=== PATIENT | male | born 1985 | race Caucasian/White ===

== ENCOUNTER 2020-06-26 16:37 | Emergency (ER) | payer BC, SELFPAY ==
[2020-06-26 16:38] VITALS: BP 146/105; PULSE 86; RESP 16; TEMP 36.2; O2SAT 99; BMI 40.6
--- NOTE | 2020-06-26 17:08 | ED.VISSUMM ---
- ER Visit Summary Date of Service: 06/26/20 Chief Complaint: Difficulty urinating and right back pain History of Present Illness: The patient is a 35 M no seen past medical history. Prior vasectomy. Patient states he has had some dysuria since yesterday morning. And difficulty urinating. Some pain in his right flank. Denies nausea, vomiting or diarrhea. No fever. States he has urgency but little urinary output. Denies any blood. No trauma. No prior history. Physical Examination: Young male no acute distress vital signs stable afebrile. H EENT exam unremarkable. Neck nontender no lymphadenopathy. Lungs clear to auscultation. Heart regular rhythm no murmur. Abdomen soft nontender nondistended. Normal bowel sounds no peritoneal signs. No suprapubic tenderness. External exam unremarkable. Bilateral descended testicles. No torsion. No mass. No obvious hernia. Circumcised. Extremities moves all 4. Neurovascular intact. No edema. Back no reproducible back or CVA tenderness. Neurologically awake alert with no focal motor deficits. Test Results: Chemistries normal normal creatinine gap. Urine to [address] flank without contrast shows a right UVJ 1 mm stone without hydro-. Read by the radiologist and reviewed by me. Bladder scan only 12 mL's no retention. Emergency Department Course and Treatment: With decreased urination and dysuria. Exam is unremarkable. Urinalysis, BMP and bladder scan will be obtained. He will be given IV Toradol for pain. Patient was also given IV Dilaudid for his pain. On repeat exam he is doing well. Treatment Plan: Plenty of fluids and rest. Strain urine for stone. Cunningham for pain. Motrin also. Follow-up with his doctor as needed. Disposition: Discharged Impression: Acute right UVJ 1 mm kidney stone. This note was generated with [employer] dictation software. It may contain incorrect words, spelling, and punctuation that were not noted in review of the chart prior to signing ED Disposition - Plan for ED Patient: Referrals: Praveen Gannon III, MD [Primary Care Provider] -
[2020-06-26 17:32] LABS: Mucous, Urine 0 SEEN /hpf (<or=2+); White Blood Cells 0 SEEN /hpf (0-5)
[2020-06-26] MEDS: Ondansetron 4 MG/2 ML Vial IV (17:33)
[2020-06-26] MEDS: Ketorolac 30 MG/ML Syringe IV (17:33)
[2020-06-26 17:36] LABS: Color, Urine Yellow (Yellow); Glucose, Dipstick Normal (Normal); Ketone-Dipstick Negative (Negative); Leukocyte Esterase-Dipstick Negative /ul (Negative); Nitrite-Dipstick Negative (Negative); Occult Blood-Urine 250 /ul (Negative); Protein-Dipstick Negative (Negative); Urine Bilirubin Dipstick Negative (Negative); Urine Clarity Clear (Clear); Urine Urobilinogen Normal (Normal)
[2020-06-26 17:42] LABS: Squamous Epithelial Cells - UA 5-10 SEEN /hpf (0-5)
[2020-06-26 17:43] LABS: Bacteria 1+ /hpf (None Seen); Red Blood Cells-Urine 10-25 SEEN /hpf (0-5)
[2020-06-26 17:46] LABS: Anion Gap 6 (5-15); BUN 13 mg/dL (7-18); BUN/Creat Ratio 12.3 RATIO (10-20); Chloride 107 mmol/L (98-107); Creatinine, Serum 1.06 mg/dL (0.70-1.30); EST Glomerular Filtration Rate 83 mL/min (>60); Est Glom Filt Rate - Afr Amer 101 mL/min (>60); Estimated Creatinine Clearance 114.04 ml/min; Glucose 88 mg/dL (74-106); Potassium 4.1 mmol/L (3.5-5.1); Sodium Level 142 mmol/L (136-145)
--- NOTE | 2020-06-26 18:02 | CT_ITS ---
STUDY: CT ABDOMEN AND PELVIS WITHOUT CONTRAST REASON FOR EXAM: Male, 35 years old. Right flank pain and dysuria testicular pain RADIATION DOSAGE (If Supplied By Facility): CTDIvol = ( 20.08 ) mGy, DLP = ( 1702.37 ) mGycm TECHNIQUE: Transaxial images were obtained from the dome of the diaphragm to the symphysis pubis without oral contrast, and without intravenous contrast. Sagittal and coronal images were reconstructed. Individualized dose optimization techniques were used for this CT. COMPARISON: None. FINDINGS: 1 mm stone is located at the right ureterovesical junction without upstream hydronephrosis. Left collecting system is clear. The liver is fatty infiltrated without focal lesions or biliary dilation. Spleen, adrenals and pancreas are intact. Bowel is normal. BMI is elevated with intra-abdominal lipomatosis. CT/Abdomen/Pelvis without Cont IMPRESSION: 1 mm right ureterovesical junction stone without hydronephrosis. Electronically Signed: Simón Rai, at 18:28 EDT Tel , Service support ,
--- NOTE | 2020-06-26 18:53 | DCINST.ED_ITS ---
ED Disposition - Plan for ED Patient: Disposition: Home or Assisted Living Instructions: ED Renal Stone w Colic Prescriptions: Hydrocodone/Acetaminophen [Rutland 7.5-325 Tablet] 1 ea PO 5X/DAY 3 Days #14 tab Prescription Printed Referrals: Praveen Gannon III, MD [Primary Care Provider] - 3-5 Days if not improving Additional Instructions: Fluids and rest. Rutland and Motrin for pain. You have a 1 mm right-sided kidney stone that should pass in the next 1 to 3 days. Strain your urine for the past stone. Follow-up with your doctor as needed.
[2020-06-26] MEDS: HYDROmorphone 1 MG/ML Syringe IV (18:54)
[2020-06-26 19:15] VITALS: BP 163/109; RESP 16
== END 2020-06-26 19:17 | disposition home or self-care (01) ==
PROVIDERS: Emergency Provider Emergency Medicine; PCP Family Medicine
DX: N20.2 Calculus of kidney with calculus of ureter (principal)
CPT/HCPCS: 74176; 80048; 81001; 96374; 96375; 99284; A4216; J2405

== ENCOUNTER → 2020-08-08 17:33 | Outpatient (CLI) | payer BC, SELFPAY | PROVIDERS: PCP Family Medicine; Referring Provider Physician Assistant Surgical; Visit Provider Physician Assistant Surgical | DX: U07.1 COVID-19 (principal) | CPT/HCPCS: 87635; C9803; U0003 ==

== ENCOUNTER → 2020-09-20 09:26 | Outpatient (CLI) | payer BC, SELFPAY ==
[2020-09-20 08:21] VITALS: BMI 39.1
[2020-09-20 12:20] LABS: Absolute Neutrophil Count 3.8 X10^3/uL (2.0-7.7); Basophil# 0.04 X10^3/uL; Basophil% 0.6 % (0-1); Eosinophil# 0.09 X10^3/uL; Eosinophils% 1.4 % (0-5); Hematocrit 51.1 % (40-54); Lymphocyte % 29.8 % (19-41); Mean Corp Hgb Conc 33.3 g/dL (32-36); Mean Corpuscular Hgb 31.7 pg (27.0-32.0); Mean Corpuscular Volume 95.2 fL (80-94); Mean Platelet Vol. 10.8 fl (6.2-12.0); Monocyte# 0.48 X10^3/uL; Monocyte% 7.5 % (0-10); NRBC Flagged by Analyzer 0 % (0-5); Neutrophil # 3.84 X10^3/uL (2.7-7.7); Neutrophil % 60.2 % (47-70); Platelet Count 340 K/mm3 (150-450); RBC Distribution Width CV 13.5 % (11.6-14.6); RBC Distribution Width SD 47.2 fl (35.1-43.9); Red Blood Count 5.37 M/mm3 (4.6-6.2); White Blood Count 6.4 K/mm3 (4.4-11.0)
[2020-09-20 12:42] LABS: ALB/GLOB Ratio 0.9 RATIO (0.9-2.4); AST(SGOT) 32 U/L (15-37); Alanine Aminotransfer ALT/SGPT 53 U/L (16-61); Albumin, Serum 4.1 g/dL (3.2-5.0); Alkaline Phosphatase 78 U/L (45-117); Anion Gap 5 (5-15); BUN 12 mg/dL (7-18); BUN/Creat Ratio 11.8 RATIO (10-20); Calcium,Total 9.2 mg/dL (8.5-10.1); Chloride 104 mmol/L (98-107); Cholesterol 199 mg/dL (200); Creatinine, Serum 1.02 mg/dL (0.70-1.30); EST Glomerular Filtration Rate 87 mL/min (>60); Est Glom Filt Rate - Afr Amer 105 mL/min (>60); Globulin 4.5 g/dL (2.2-4.2); Glucose 103 mg/dL (74-106); High Density Lipoprotein 35 mg/dL; Potassium 4.2 mmol/L (3.5-5.1); Protein, Total 8.6 g/dL (6.4-8.2); Sodium Level 137 mmol/L (136-145); Triglycerides 163 mg/dL; Very Low Density Lipoprotein 33 mg/dL (5-40)
== END ==
PROVIDERS: PCP Internal Medicine; Referring Provider Internal Medicine; Visit Provider Internal Medicine
DX: I10 Essential (primary) hypertension (principal)
CPT/HCPCS: 36415; 80053; 80061; 85025

== ENCOUNTER → 2020-09-20 11:06 | Outpatient (CLI) | payer BC, SELFPAY ==
[2020-09-20 08:21] VITALS: BMI 39.1
--- NOTE | 2020-09-20 11:09 | EKG12_ITS ---
Test Reason : Blood Pressure : / mmHG Vent. Rate : 080 BPM Atrial Rate : 080 BPM P-R Int : 160 ms QRS Dur : 094 ms QT Int : 370 ms P-R-T Axes : 018 010 021 degrees QTc Int : 426 ms Normal sinus rhythm Normal ECG Confirmed by ROGELIO PATEL, EDGARD ([id number]), editor managing newspaper CARLA DIXON ([id number]) on 09/21/2020 9:40:25 AM Referred By: Erica Donaldson Confirmed By:EDGARD MERCADO MD
== END ==
PROVIDERS: PCP Internal Medicine; Referring Provider Internal Medicine; Visit Provider Internal Medicine
DX: I10 Essential (primary) hypertension (principal)
CPT/HCPCS: 93005

== ENCOUNTER 2021-01-19 08:41 | Outpatient (RCR) | payer BC, SELFPAY ==
[2020-11-25 10:22] VITALS: BMI 38.7
== END 2021-03-14 23:59 ==
LOC: IMMUN 08:41
PROVIDERS: PCP Internal Medicine; Referring Provider Family Medicine; Visit Provider Family Medicine
DX: Z23 Encounter for immunization (principal)
CPT/HCPCS: 0001A; 0002A; 91300

== ENCOUNTER → 2021-08-16 09:57 | Outpatient (CLI) | payer BC, SELFPAY ==
[2021-08-16 12:17] LABS: Absolute Lymphocyte Count 1.28 X10^3/uL (0.83-4.51); Absolute Neutrophil Count 5.9 X10^3/uL (2.0-7.7); Basophil# 0.03 X10^3/uL; Basophil% 0.4 % (0-1); Eosinophil# 0.06 X10^3/uL; Eosinophils% 0.8 % (0-5); Hematocrit 46.9 % (40-54); Hemoglobin 16.1 g/dL (13.0-16.5); Lymphocyte # 1.28 X10^3/ul (0.83-4.51); Lymphocyte % 16.5 % (19-41); Mean Corp Hgb Conc 34.3 g/dL (32-36); Mean Corpuscular Volume 90.4 fL (80-94); Mean Platelet Vol. 10.6 fl (6.2-12.0); Monocyte# 0.45 X10^3/uL; Monocyte% 5.8 % (0-10); NRBC Flagged by Analyzer 0 % (0-5); Neutrophil # 5.92 X10^3/uL (2.7-7.7); Platelet Count 318 K/mm3 (150-450); RBC Distribution Width CV 13.1 % (11.6-14.6); Red Blood Count 5.19 M/mm3 (4.6-6.2); White Blood Count 7.8 K/mm3 (4.4-11.0)
[2021-08-16 13:03] LABS: ALB/GLOB Ratio 0.8 RATIO (0.9-2.4); AST(SGOT) 19 U/L (15-37); Alanine Aminotransfer ALT/SGPT 32 U/L (16-61); Albumin, Serum 3.7 g/dL (3.2-5.0); Alkaline Phosphatase 74 U/L (45-117); Anion Gap 6 (5-15); BUN 10 mg/dL (7-18); BUN/Creat Ratio 10.7 RATIO (10-20); Calcium,Total 9.1 mg/dL (8.5-10.1); Chloride 104 mmol/L (98-107); Cholesterol 174 mg/dL (200); Creatinine, Serum 0.93 mg/dL (0.70-1.30); EST Glomerular Filtration Rate 96 mL/min (>60); Est Glom Filt Rate - Afr Amer 116 mL/min (>60); Globulin 4.4 g/dL (2.2-4.2); Glucose 100 mg/dL (74-106); High Density Lipoprotein 33 mg/dL; Potassium 4.2 mmol/L (3.5-5.1); Protein, Total 8.1 g/dL (6.4-8.2); Sodium Level 136 mmol/L (136-145); Triglycerides 135 mg/dL; Very Low Density Lipoprotein 27 mg/dL (5-40)
== END ==
PROVIDERS: PCP Internal Medicine; Referring Provider Internal Medicine; Visit Provider Internal Medicine
DX: Z00.00 Encounter for general adult medical examination without abnormal findings (principal)
CPT/HCPCS: 36415; 80053; 80061; 85025

== ENCOUNTER → 2022-02-07 | Outpatient (CLI) | payer BC, SELFPAY ==
[2022-02-07 12:51] LABS: Anion Gap 7 (5-15); BUN 16 mg/dL (7-18); BUN/Creat Ratio 15.8 RATIO (10-20); Calcium,Total 9.2 mg/dL (8.5-10.1); Chloride 106 mmol/L (98-107); Creatinine, Serum 1.01 mg/dL (0.70-1.30); EST Glomerular Filtration Rate 87 mL/min (>60); Est Glom Filt Rate - Afr Amer 106 mL/min (>60); Glucose 104 mg/dL (74-106); Potassium 4.3 mmol/L (3.5-5.1); Sodium Level 137 mmol/L (136-145)
== END | disposition home or self-care (01) ==
LOC: BIMLAB 10:31
PROVIDERS: PCP Internal Medicine; Referring Provider Internal Medicine; Visit Provider Internal Medicine
DX: I10 Essential (primary) hypertension (principal)
CPT/HCPCS: 36415; 80048

== ENCOUNTER → 2022-05-16 | Outpatient (CLI) | payer BC, SELFPAY ==
--- NOTE | 2022-05-16 16:50 | RAD_ITS ---
STUDY: RIGHT FOOT X-RAY SERIES OF 1654 HOURS ON 05/16/2022 CLINICAL: 37-year-old male with right foot pain. TECHNIQUE: 3 view(s) of the foot. COMPARISON: 10/23/2017. FINDINGS: No fractures or dislocations. No arthritic or degenerative changes. Mild hammertoe deformities of the second through fifth toes. Moderate size Achilles spur. No neoplastic or inflammatory changes. RAD/Foot min 3 Views IMPRESSION: 1. No fractures or dislocations 2. No arthritic changes. 3. No neoplastic or inflammatory changes. 4. Mild hammertoe deformities of second through fifth toes. 5. Moderate size Achilles spur. Electronically Signed: Giovanny Gonzales MD at 18:08 EDT ,
== END | disposition home or self-care (01) ==
LOC: MTRAD 16:48
PROVIDERS: PCP Internal Medicine; Referring Provider Physician Assistant Surgical; Visit Provider Physician Assistant Surgical
DX: S96.911A Strain of unspecified muscle and tendon at ankle and foot level, right foot, initial encounter (principal)
CPT/HCPCS: 73630

== ENCOUNTER → 2022-06-05 | Outpatient (CLI) | payer BC, SELFPAY | END | disposition home or self-care (01) | LOC: SL 20:14 | PROVIDERS: PCP Internal Medicine; Referring Provider Internal Medicine; Visit Provider Internal Medicine | DX: G47.30 Sleep apnea, unspecified (principal) | CPT/HCPCS: 95810 ==

== ENCOUNTER → 2022-07-23 | Outpatient (CLI) | payer BC, SELFPAY | END | disposition home or self-care (01) | LOC: SL 13:36 | PROVIDERS: PCP Internal Medicine; Visit Provider Internal Medicine | DX: Z00.00 Encounter for general adult medical examination without abnormal findings (principal) ==

== ENCOUNTER → 2022-10-30 | Outpatient (CLI) | payer BC, SELFPAY ==
[2022-10-30 12:17] LABS: Absolute Lymphocyte Count 1.68 X10^3/uL (0.83-4.51); Absolute Neutrophil Count 2.5 X10^3/uL (2.0-7.7); Basophil# 0.04 X10^3/uL; Basophil% 0.9 % (0-1); Eosinophil# 0.08 X10^3/uL; Eosinophils% 1.7 % (0-5); Hemoglobin 15.2 g/dL (13.0-16.5); Lymphocyte # 1.68 X10^3/ul (0.83-4.51); Lymphocyte % 36.1 % (19-41); Mean Corp Hgb Conc 33.8 g/dL (32-36); Mean Corpuscular Hgb 31.6 pg (27.0-32.0); Mean Corpuscular Volume 93.6 fL (80-94); Mean Platelet Vol. 10.8 fl (6.2-12.0); Monocyte# 0.37 X10^3/uL; Monocyte% 7.9 % (0-10); NRBC Flagged by Analyzer 0 % (0-5); Neutrophil # 2.47 X10^3/uL (2.7-7.7); Platelet Count 276 K/mm3 (150-450); RBC Distribution Width CV 12.8 % (11.6-14.6); RBC Distribution Width SD 44.1 fl (35.1-43.9); Red Blood Count 4.81 M/mm3 (4.6-6.2); White Blood Count 4.7 K/mm3 (4.4-11.0)
[2022-10-30 12:46] LABS: AST(SGOT) 23 U/L (15-37); Alanine Aminotransfer ALT/SGPT 42 U/L (16-61); Albumin, Serum 3.6 g/dL (3.2-5.0); Alkaline Phosphatase 56 U/L (45-117); Anion Gap 5 (5-15); BUN 13 mg/dL (7-18); BUN/Creat Ratio 12.6 RATIO (10-20); Chloride 106 mmol/L (98-107); Cholesterol 195 mg/dL (200); Creatinine, Serum 1.03 mg/dL (0.70-1.30); EST Glomerular Filtration Rate 85 mL/min (>60); Est Glom Filt Rate - Afr Amer 103 mL/min (>60); Globulin 3.7 g/dL (2.2-4.2); Glucose 108 mg/dL (74-106); High Density Lipoprotein 32 mg/dL; Potassium 4.5 mmol/L (3.5-5.1); Protein, Total 7.3 g/dL (6.4-8.2); Sodium Level 139 mmol/L (136-145); Triglycerides 146 mg/dL; Very Low Density Lipoprotein 29 mg/dL (5-40)
[2022-10-30 17:12] LABS: Hemoglobin A1c 5.7 % (3.8-5.6)
== END | disposition home or self-care (01) ==
LOC: BIMLAB 10:38
PROVIDERS: PCP Internal Medicine; Referring Provider Physician Assistant; Visit Provider Physician Assistant
DX: Z00.00 Encounter for general adult medical examination without abnormal findings (principal); R73.01 Impaired fasting glucose
CPT/HCPCS: 36415; 80053; 80061; 83036; 85025

== ENCOUNTER → 2023-12-24 | Outpatient (CLI) | payer BC, SELFPAY ==
[2023-12-24 09:22] LABS: Absolute Lymphocyte Count 2.01 X10^3/uL (0.83-4.51); Absolute Neutrophil Count 1.9 X10^3/uL (2.0-7.7); Basophil# 0.03 X10^3/uL; Basophil% 0.6 % (0-1); Eosinophil# 0.11 X10^3/uL; Eosinophils% 2.4 % (0-5); Hematocrit 44.6 % (40-54); Hemoglobin 15.3 g/dL (13.0-16.5); Lymphocyte # 2.01 X10^3/ul (0.83-4.51); Lymphocyte % 42.9 % (19-41); Mean Corp Hgb Conc 34.3 g/dL (32-36); Mean Corpuscular Hgb 31.5 pg (27.0-32.0); Mean Platelet Vol. 10.5 fl (6.2-12.0); Monocyte# 0.58 X10^3/uL; Monocyte% 12.4 % (0-10); NRBC Flagged by Analyzer 0 % (0-5); Neutrophil # 1.94 X10^3/uL (2.7-7.7); Neutrophil % 41.5 % (47-70); Platelet Count 300 K/mm3 (150-450); RBC Distribution Width CV 13.3 % (11.6-14.6); RBC Distribution Width SD 44.7 fl (35.1-43.9); Red Blood Count 4.85 M/mm3 (4.6-6.2); White Blood Count 4.7 K/mm3 (4.4-11.0)
[2023-12-24 09:44] LABS: Hemoglobin A1c 5.7 % (3.8-5.6)
[2023-12-24 09:47] LABS: Vitamin B12 456 pg/mL (211-911); Vitamin D,25 Hydroxy 34.2 ng/mL
[2023-12-24 09:57] LABS: ALB/GLOB Ratio 0.9 RATIO (0.9-2.4); AST(SGOT) 22 U/L (15-37); Alanine Aminotransfer ALT/SGPT 30 U/L (16-61); Albumin, Serum 3.9 g/dL (3.2-5.0); Alkaline Phosphatase 58 U/L (45-117); Anion Gap 6 (5-15); BUN 19 mg/dL (7-18); BUN/Creat Ratio 14.6 RATIO (10-20); Calcium,Total 9.2 mg/dL (8.5-10.1); Chloride 103 mmol/L (98-107); Cholesterol 196 mg/dL (200); EST Glomerular Filtration Rate 65 mL/min (>60); Est Glom Filt Rate - Afr Amer 78 mL/min (>60); Globulin 4.2 g/dL (2.2-4.2); Glucose 103 mg/dL (74-106); High Density Lipoprotein 27 mg/dL; Potassium 3.6 mmol/L (3.5-5.1); Protein, Total 8.1 g/dL (6.4-8.2); Sodium Level 136 mmol/L (136-145); Triglycerides 187 mg/dL; Very Low Density Lipoprotein 37 mg/dL (5-40)
== END | disposition home or self-care (01) ==
PROVIDERS: PCP Nurse Practitioner Family; Referring Provider Nurse Practitioner Family; Visit Provider Nurse Practitioner Family
DX: Z00.00 Encounter for general adult medical examination without abnormal findings (principal)
CPT/HCPCS: 36415; 80053; 80061; 82306; 82607; 83036; 84443; 85025

== ENCOUNTER 2024-05-15 20:53 | Emergency (ER) | payer OTHER, BC, SELFPAY ==
[2024-05-15 20:54] VITALS: BP 112/64; PULSE 97; RESP 16; TEMP 35.7; O2SAT 97; BMI 37.6
--- NOTE | 2024-05-15 21:13 | EDS_ITS ---
HPI History of Present Illness Chief Complaint: Upper Extremity Injury Informant: patient and spouse/S.O. Narrative Narrative: 39-year-old male presenting to the emergency room with a chief complaint of right hand injury. 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 Patient states that a very heavy lid from a box came down onto his right hand. He states he was seen in emergency department where x-rays were performed. His paperwork from the hospital states he was diagnosed with a closed fifth metacarpal fracture with delayed healing. He received a dose of Toradol and a dose of narcotic pain medication. He was discharged home with a Velcro thumb spica splint. Patient states once he returned home he came to the emergency department being to file Workmen's Comp. as they did not have the appropriate paperwork at that hospital. He notes the pain is better than what it was this morning. He is right-handed. [facility] Medical History Prediabetes RADHA (obstructive sleep apnea) Sleep apnea Preventative health care Obesity Hypertension Electrocution History of renal stone Seasonal allergies Home Medications ?Medication ?Instructions ?Recorded ?Last Taken ?Type cetirizine 10 mg tablet 10 mg PO DAILY 10/13/17 10/13/17 History DENTAL DEVICE FOR RADHA #1 ea 02/12/23 Unknown Rx valsartan 320 mg tablet 320 mg PO DAILY #90 tabs 02/12/23 Unknown Rx fluticasone propionate 50 2 spray intranasal DAILY PRN 05/15/24 Unknown History mcg/actuation nasal allergy symptoms spray,suspension (Flonase Allergy Relief) hydrochlorothiazide 12.5 mg tablet 12.5 mg PO DAILY 05/15/24 Unknown History semaglutide (weight loss) 0.5 mg subcut 05/15/24 Unknown History mg/0.5 mL subcutaneous pen injector (Wegovy) Allergy/AdvReac Type Severity Reaction Status Date / Time No Known Allergies Allergy Verified 05/15/24 21:01 Family History Grandfather Cancer Father Myocardial infarction, Onset Age: 54 Depression Hypertension Uncle Kidney disease Grandmother CVA (cerebral vascular accident) Mother Depression Hypertension Surgical History History of vasectomy Social History Smoking Status: Never smoker alcohol intake: current alcohol intake frequency: holidays/special occasions only substance use type: does not use what type of physical activity do you participate in: other details: heavy lifting at work ROS ROS ED Constitutional Constitutional ED: Denies chills, fever(s) or weight loss Eyes Eyes: Denies change in vision or diplopia ENT ENT ED: Denies ear pain, rhinorrhea or sore throat Cardiovascular Cardiovascular: Denies chest pain, orthopnea, palpitations or racing heartbeat Respiratory/Chest Respiratory/Chest: Denies cough, dyspnea or orthopnea Gastrointestinal Gastrointestinal: Denies abdominal pain, diarrhea, nausea or vomiting Genitourinary Genitourinary ED: Denies dysuria, hematuria or urinary frequency Musculoskeletal Musculoskeletal: Reports other Details: See history of present illness ; Denies arthralgias or myalgias Integumentary Denies abscess, Abrasions or rash Neurologic Neurologic: Denies headache(s) or weakness Psychiatric Psychiatric: Denies anxiety, depression, suicidal ideation or suicidal thoughts Endocrine Endocrinology: Denies polydipsia, polyphagia or polyuria Allergic/Immunologic Allergic/Immunologic ED: Denies mouth swelling, tongue swelling or urticaria EXAM Physical Exam Const Vital Signs: 05/15/24 20:54 Temperature 96.3 F L Temperature Source Temporal Pulse Rate 97 Respiratory Rate 16 Blood Pressure 112/64 Blood Pressure Mean 80 Pulse Ox 97 Oxygen Delivery Method Room Air Positive well nourished and well developed General Appearance ED: well developed HEENT Reports normocephalic, head/scalp atraumatic and moist mucous membranes Eyes PERRL and EOMs intact bilaterally Neck full ROM, no lymphadenopathy, supple and no JVD Resp normal respiratory effort and clear to auscultation bilaterally Cardio regular rate, regular rhythm and no murmurs GI normal to inspection, nondistended, normoactive bowel sounds and non-tender Palpation: soft Back/Spine no CVA tenderness and normal ROM Extremity Extremity Narrative: Left thumb pain tenderness along the fifth metacarpal with pain radiating up over the medial dorsal right wrist. Mild swelling noted General Extremety ED: Negative for edema General Extremity: Negative for edema Neuro oriented x3 and CN's II-XII intact bilaterally Sensorium / Orientation: alert Motor Exam: strength 5/5 throughout Psych mental status grossly normal Mood & Affect: Negative for depressed or tearful Skin no rashes or lesions noted and no wounds MDM MDM MDM Narrative Medical decision making narrative: Patient brought a disc with his imaging on it. This is limited and reviewed by myself. X-rays of the forearm wrist and hand were reviewed. I do not see an acute fracture. There is evidence of a healed fifth metacarpal fracture. We obtained our own independent x-rays of the right hand which in my review does not demonstrate any acute fracture. Old fracture noted. Radiology concurs. Is difficult to fully exclude a nondisplaced fracture in that same area but I think this is less likely. There is really no significant ecchymosis or contusion at this point no significant mount of swelling that I would expect with the fracture though not definitive physical exam finding. The Velcro splint that he has been using does extend past the MCP joint. I think is reasonable to continue wearing this. He has orthopedics follow-up scheduled for next with Dr. Rene. Patient received a dose of pain medication here in the department. He will be given work restrictions return if worsening or concerns History & Record Review Discussion w/independent historian: Patient and Significant other Discharge Plan Triage Chief Complaint: Upper Extremity Injury ED Provider: Johnathon Ruth Dx/Rx/DC Orders Clinical Impression: Contusion of hand, right Instructions: Bone Contusion Prescriptions: No Action (DME) DENTAL DEVICE FOR RADHA See Rx Instructions .Route .MEDSUPPLY Qty: 1 0RF Rx Instructions: As directed valsartan 320 mg tablet 320 mg PO DAILY Qty: 90 2RF cetirizine 10 MG tablet 10 mg PO DAILY hydrochlorothiazide 12.5 mg tablet 12.5 mg PO DAILY fluticasone propionate [Flonase Allergy Relief] 50 mcg/actuation spray,suspension 2 spray intranasal DAILY PRN (Reason: allergy symptoms) Rx Instructions: administer into each nostril Wegovy 0.5 mg/0.5 mL pen injector subcut Primary Care Provider: Mian Shepherd Referrals: Peña Rene MD [Med Staff - Active Staff] - Keep Camron appointment Mian Shepherd, ELECTRONICS ENGINEERING MANAGER-C [Primary Care Provider] - Print Language: Chinese Disposition Disposition: Home, Self Care
--- NOTE | 2024-05-15 21:20 | RAD_ITS ---
INDICATION: INJURY 5TH [facility] EXAMINATION/TECHNIQUE: X-RAY - RIGHT XR Hand Min 3 Views 3 VIEWS COMPARISON: Right hand x-rays earlier same day. FINDINGS: BONES: There is old fracture deformity of the fifth metacarpal proximal to midportion. Acute fracture superimposed at this site is difficult to completely exclude. No other fracture demonstrated. No change compared to the earlier study. JOINTS: No dislocation. SOFT TISSUES: Unremarkable. RAD/Hand Min 3 Views IMPRESSION: Nonacute appearing fracture of the fifth metacarpal. Difficult to exclude subtle acute fracture superimposed at site of prior fracture. Electronically Signed: Karen Guerrero MD at 21:46 EDT ,
[2024-05-15] MEDS: oxyCODONE 5 MG Tablet 10 MG PO (21:32)
[2024-05-15 22:41] VITALS: BP 142/78; PULSE 89; RESP 16; TEMP 36.2; O2SAT 99
== END 2024-05-15 22:42 | disposition home or self-care (01) ==
PROVIDERS: Emergency Provider Emergency Medicine; PCP Nurse Practitioner Family; Visit Provider Emergency Medicine
DX: S60.221A Contusion of right hand, initial encounter (principal); W22.8XXA Striking against or struck by other objects, initial encounter; Y99.0 Civilian activity done for income or pay; I10 Essential (primary) hypertension; Z79.899 Other long term (current) drug therapy
CPT/HCPCS: 73130; 99282

== ENCOUNTER 2024-07-16 16:30 | Outpatient (RCR) | payer OTHER, SELFPAY ==
--- NOTE | 2024-06-22 15:06 | HP.OTEVAL_ITS ---
Patient's Visit Information Visit Information Visit Information: ROHAN BERRY is a 39 year old M, referred to Occupational Therapy by Dr. Peña Rene MD, with a diagnosis of fx of fifth metacarpal R hand. Date of Evaluation: 06/18/24 Occupational Therapist: DEMOND Pelaez/Nito, CHT Subjective Subjective: this 39-year-old male arrives with dx of fx of 5th metacarpal R hand. occurred 05/14/24, pt was working and cooler lid fell of hand. next morning went to ER in [place]. splinted for 3 weeks. 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 dr. Rene 1# weight restriction. pt difficulty with self-care, using a knife, pulling up pants/socks. denies tingling/numb. Pain R wrist: Current Pain Intensity: 0 Pain Intensity Range: 7 ROM Wrist: R 40/30 L 50/65 ROM Comments: fingers WFL R UD 25 RD 10 L UD [address] 30 Strength Sr Risk Management Consultant: L 140# R NT Lateral Pinch: L 28# R NT Tripod Pinch: L 24# R NT Strength Comments: R to be tested at later date Sensation Sensation Comments: denies Quick DASH-Disab of Arm,Shoulder& Hand Quick DASH Score: 43.1800 Goals Goal:ROM equal to unaffected hand: Yes Goal:Sr Risk Management Consultant/Pinch strength at least 75% of unaffected hand: Yes Goal:No pain with affected hand use: Yes Goal:Full use of affected hand in daily activities including work: Yes Other Goal: pt will demo 100% adherence to wrist ergonomics and joint protection techniques by end of POC. pt will demo increased I in functional works tasks 4/4 trials for return to work by end of POC. pt will improve QuickDASH score by points or more to maximize use of R hand (43.18). Rehabilitation General Assessment: this 39-year-old male arrives with dx of fx of fifth metacarpal R hand resulting in limited ROM and strength impacting pt ability to complete ADLs/IALDs, daily functional tasks. pt is recommended to complete OT services 2x a week for 6 weeks to address above impairments. Therapy session was directly supervised and doc. approved by Sophie LAGOS/Nito, CHT. Rehabilitation Potential: Good Anticipated Interventions Anticipated Interventions: A/AAROM/PROM, Strengthening, Modalities, Joint Protection/Energy Conservation, Ergonomic Education, Education re assistive Equipment, Education re Diagnosis and Home Program Visit Plan Frequency: 2x /Week Duration: 6 Weeks General Plan: decrease pain improve ROM increase strength use wrist/hand normally again return to work TEXT: Thank you for the opportunity to evaluate your patient. For Medicare and Medicare HMO plans, please review the plan of care and approve it. It will need to be FAXED BACK to us at [phone] for Medicare purposes. Please let me know if there are questions or concerns regarding this plan of care. Physician Signature: Date:
--- NOTE | 2024-07-22 09:00 | HP.OT.NRP ---
Patient Information Patient Information: ROHAN BERRY was seen in my office for initial evaluation on 06/18/24. The following Plan of Care was established for this patient: POC Established Initial Frequency: 2x /Week Initial Duration: 6 Weeks Plan: stated no loger needs therapy- chart can be D/Kal. Anticipated Interventions Anticipated Interventions: A/AAROM/PROM, Strengthening, Modalities, Joint Protection/Energy Conservation, Ergonomic Education, Education re assistive Equipment, Education re Diagnosis and Home Program Last Seen Last Seen: This patient was last seen in our office 07/16/24. Pertinent comments regarding their Occupational therapy will appear below: pt called to cancel apt. states released him back to work and states he is OK to d/c OT services. pt was doing great on last visit. pt d/c at this time. At this point I will be discontinuing this patient from occupational therapy. I would be happy to see this patient again in the future if found appropriate by the physician. Thank you! Sophie Barakat, OTR/L, CHT
== END 2024-07-16 19:00 | disposition home or self-care (01) ==
LOC: OT 16:30
PROVIDERS: PCP Nurse Practitioner Family; Referring Provider Orthopaedic Surgery Sports Medicine; Visit Provider Orthopaedic Surgery Sports Medicine
DX: S62.306D Unspecified fracture of fifth metacarpal bone, right hand, subsequent encounter for fracture with routine healing (principal)
CPT/HCPCS: 97110; 97165; 97166; 97530

== ENCOUNTER → 2024-09-18 | Outpatient (CLI) | payer BC, SELFPAY ==
[2024-09-18 15:16] LABS: Absolute Neutrophil Count 3.3 X10^3/uL (2.0-7.7); Basophil# 0.03 X10^3/uL; Basophil% 0.5 % (0-1); Eosinophil# 0.21 X10^3/uL; Eosinophils% 3.4 % (0-5); Hematocrit 38.8 % (40-54); Hemoglobin 13.1 g/dL (13.0-16.5); Lymphocyte % 35.5 % (19-41); Mean Corp Hgb Conc 33.8 g/dL (32-36); Mean Corpuscular Hgb 32.8 pg (27.0-32.0); Mean Corpuscular Volume 97.2 fL (80-94); Mean Platelet Vol. 10.7 fl (6.2-12.0); Monocyte# 0.47 X10^3/uL; Monocyte% 7.6 % (0-10); NRBC Flagged by Analyzer 0 % (0-5); Neutrophil # 3.27 X10^3/uL (2.7-7.7); Neutrophil % 52.7 % (47-70); Platelet Count 322 K/mm3 (150-450); RBC Distribution Width CV 13.8 % (11.6-14.6); RBC Distribution Width SD 49.4 fl (35.1-43.9); Red Blood Count 3.99 M/mm3 (4.6-6.2); White Blood Count 6.2 K/mm3 (4.4-11.0)
[2024-09-18 15:47] LABS: ALB/GLOB Ratio 0.9 RATIO (0.9-2.4); AST(SGOT) 17 U/L (15-37); Alanine Aminotransfer ALT/SGPT 24 U/L (16-61); Albumin, Serum 3.9 g/dL (3.2-5.0); Alkaline Phosphatase 58 U/L (45-117); Anion Gap 5 (5-15); BUN 24 mg/dL (7-18); Calcium,Total 9.3 mg/dL (8.5-10.1); Chloride 107 mmol/L (98-107); Cholesterol 200 mg/dL (200); Creatinine, Serum 1.41 mg/dL (0.70-1.30); EST Glomerular Filtration Rate 59 mL/min (>60); Est Glom Filt Rate - Afr Amer 71 mL/min (>60); Globulin 4.2 g/dL (2.2-4.2); Glucose 102 mg/dL (74-106); High Density Lipoprotein 31 mg/dL; Potassium 4.4 mmol/L (3.5-5.1); Protein, Total 8.1 g/dL (6.4-8.2); Sodium Level 138 mmol/L (136-145); Triglycerides 227 mg/dL; Very Low Density Lipoprotein 45 mg/dL (5-40)
[2024-09-18 16:14] LABS: Hemoglobin A1c 5.5 % (3.8-5.6)
== END | disposition home or self-care (01) ==
LOC: BIMLAB 12:04
PROVIDERS: PCP Nurse Practitioner Family
DX: Z00.00 Encounter for general adult medical examination without abnormal findings (principal); I10 Essential (primary) hypertension
CPT/HCPCS: 36415; 80053; 80061; 83036; 84443; 85025

== ENCOUNTER → 2025-03-04 | Outpatient (CLI) | payer BC, SELFPAY ==
[2025-03-04 12:30] LABS: Absolute Lymphocyte Count 1.66 X10^3/uL (0.83-4.51); Absolute Neutrophil Count 3.4 X10^3/uL (2.0-7.7); Basophil# 0.04 X10^3/uL; Basophil% 0.7 % (0-1); Eosinophil# 0.25 X10^3/uL; Eosinophils% 4.4 % (0-5); Hematocrit 39.4 % (40-54); Hemoglobin 13.5 g/dL (13.0-16.5); Lymphocyte # 1.66 X10^3/ul (0.83-4.51); Mean Corp Hgb Conc 34.3 g/dL (32-36); Mean Corpuscular Volume 93.4 fL (80-94); Mean Platelet Vol. 9.7 fl (6.2-12.0); NRBC Flagged by Analyzer 0 % (0-5); Neutrophil # 3.37 X10^3/uL (2.7-7.7); Neutrophil % 58.7 % (47-70); Platelet Count 341 K/mm3 (150-450); RBC Distribution Width SD 44.5 fl (35.1-43.9); Red Blood Count 4.22 M/mm3 (4.6-6.2); White Blood Count 5.7 K/mm3 (4.4-11.0)
[2025-03-04 13:01] LABS: ALB/GLOB Ratio 1.3 RATIO (0.9-2.4); AST(SGOT) 20 U/L (<=37); Alanine Aminotransfer ALT/SGPT 20 U/L (<=46); Albumin, Serum 4.6 g/dL (3.5-5.0); Alkaline Phosphatase 58 U/L (40-129); Anion Gap 13 (5-15); BUN 27 mg/dL (4-19); BUN/Creat Ratio 18.3 RATIO (10-20); Calcium,Total 9.9 mg/dL (7.6-11.0); Carbon Dioxide 24.3 mmol/L (21.0-32.0); Chloride 103 mmol/L (98-108); Cholesterol 178 mg/dL (<=200); Creatinine, Serum 1.45 mg/dL (0.70-1.20); EST Glomerular Filtration Rate 62 (>60); Globulin 3.7 g/dL (2.2-4.2); Glucose 94 mg/dL (70-99); High Density Lipoprotein 32 mg/dL; Low Density Lipoprotein Calc. 121 mg/dL; Potassium 4.7 mmol/L (3.3-5.1); Protein, Total 8.3 g/dL (5.9-8.4); Sodium Level 140 mmol/L (133-145); Thyroid Stim Hormone (TSH) 0.781 uIU/mL (0.300-4.200); Total Bilirubin 0.37 mg/dL (0.00-1.30); Triglycerides 123 mg/dL; Very Low Density Lipoprotein 25 mg/dL (5-40); cholesterol:hdl ratio screen 5.56
== END | disposition home or self-care (01) ==
PROVIDERS: PCP Nurse Practitioner Family
DX: Z13.220 Encounter for screening for lipoid disorders (principal); I10 Essential (primary) hypertension
CPT/HCPCS: 36415; 80053; 80061; 84443; 85025